=== PATIENT | female | born 1955 | race Caucasian/White ===

== ENCOUNTER → 2019-08-28 12:06 | Outpatient (BNVA) | payer BC, SELFPAY | PROVIDERS: Family Provider Family Medicine; PCP Family Medicine; Visit Provider Nurse Practitioner Women's Health | DX: Z01.89 Encounter for other specified special examinations (principal) ==

== ENCOUNTER 2020-08-01 08:43 | Outpatient (CLI) | payer BC, SELFPAY ==
--- NOTE | 2020-08-01 08:48 | MM_ITS ---
WS: [id number] Bilateral screening digital mammogram, 08/01/2020 Clinical Data: SCREENING Comparison: 07/31/2019, 06/16/2018, 12/23/2017, 06/17/2017, 05/26/2017, 04/14/2016, 04/14/2015, 03/12/2014, 03/08/2013, 01/05/2012, 12/17/2010, 12/15/2009. Findings: The breast parenchymal pattern shows fibroglandular tissue. No spiculated masses or clustered calcifi cations are seen. There are no secondary signs of carcinoma. There are lymph nodes in both axilla. MM/[place] [id number] Impression: 1. Negative bilateral mammogram unchanged. 2. Recommend annual screening mammograms. BIRADS: 1-Negative FOLLOW UP: 1 Year Follow-up The CAD clerical car checker was used.
== END 2020-08-01 08:44 | disposition home or self-care (01) ==
LOC: RADSHAW 08:45
PROVIDERS: Family Provider Family Medicine; PCP Family Medicine; Visit Provider Nurse Practitioner Women's Health
DX: Z12.31 Encounter for screening mammogram for malignant neoplasm of breast (principal)
CPT/HCPCS: 77067

== ENCOUNTER → 2021-06-19 10:23 | Outpatient (BNVA) | payer BC, SELFPAY | PROVIDERS: Family Provider Family Medicine; PCP Family Medicine; Visit Provider Surgery | DX: Z20.822 Contact with and (suspected) exposure to COVID-19 (principal); Z11.52 Encounter for screening for COVID-19 | CPT/HCPCS: 87635 ==

== ENCOUNTER 2021-06-24 06:57 | Day surgery (SDC) | payer BC, MEDICARE, SELFPAY ==
[2021-06-22 12:12] VITALS: BMI 30.2
--- NOTE | 2021-06-24 07:44 | ANES.PREANE2 ---
Pre-Anesthetic Assessment Pre-Anesthetic Assessment: Height/Weight: Height 1.52 m Weight 70.307 kg Preop Diagnosis: Screening colonoscopy Proposed Procedure: Operation Date: 06/24/21 08:15 Proposed Procedures p Colonoscopy 84156 Z12.11(Not Applicable) - Nestor Hayes MD Familial anesthetic complications: None Was Beta Isatu taken within 24 hours: N/A Was Clonidine taken within 24 hours: N/A Last intake: > 8 hrs Social: Social History: No alcohol and No tobacco Exam: Pre-Anes Outpt Exam: alert, oriented x 3, clear to auscultation bilaterally and regular rate & rhythm Airway: Cervical ROM: WNL MP: 1 Dentition: Full Pulmonary: Comments: allergies Anesthetic Plan: ASA status: 1 Anesthesia: MAC Risk of > 500 ml blood loss (7ml/kg in children): No PFSH Anesthesia PFSH: Medical History Patient denies medical problems Patient denies any past medical history of hypertension, diabetes, heart, lung, liver, kidney, thyroid, bleeding, or clotting problems. Surgical History History of tubal ligation Family History Brother Colon cancer dx age 70's Denies family history of Ovarian cancer Diabetes Heart disease Hypercholesteremia Breast cancer Hypertension Uterine cancer Thyroid disease Stroke Social History Smoking and tobacco status: never smoked Additional social history: Well balanced diet Data Anesthesia Cardiac Studies: No Data to Display
[2021-06-24 08:08] VITALS: BP 168/99; PULSE 93; RESP 18; TEMP 36.1; O2SAT 95
[2021-06-24] MEDS: sodium chloride 0.9% 1,000 ML 30 ML IV (08:24)
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
[2021-06-24 09:16] VITALS: BP 95/72; PULSE 73; RESP 18; TEMP 36.2; O2SAT 96
--- NOTE | 2021-06-24 15:37 | ANE.PACU2 ---
Inpatient post-anesthesia follow up: Airway intact: Yes Vital signs: Temperature 97.1 F Pulse Rate 73 Respiratory Rate 18 Blood Pressure 95/72 Pulse Oximetry 96 Oxygen Delivery Me thod Nasal Cannula Oxygen Flow Rate 4 Fraction of Inspir ed Oxygen Hydration adequate: Yes Nausea and vomiting: No Pain level: 2 Mental status: Baseline
== END 2021-06-24 09:45 | disposition home or self-care (01) ==
PROVIDERS: PCP Family Medicine; Visit Provider Surgery
PROC: 0DJD8ZZ Inspection of Lower Intestinal Tract, Via Natural or Artificial Opening Endoscopic (ICD-10-PCS; CPT 45378; principal; 2021-06-24 08:15)
DX: Z12.11 Encounter for screening for malignant neoplasm of colon (principal); K57.30 Diverticulosis of large intestine without perforation or abscess without bleeding; Z80.0 Family history of malignant neoplasm of digestive organs; Z86.718 Personal history of other venous thrombosis and embolism
CPT/HCPCS: 45378; 96360; J2704; J7030

== ENCOUNTER 2021-07-21 10:02 | Outpatient (CLI) | payer BC, MEDICARE, SELFPAY ==
--- NOTE | 2021-07-21 10:08 | CT_ITS ---
WS: [id number] CT CHEST ANGIOGRAPHY WITH REFORMATS HISTORY: RESPIRATORY CRACKLES/DYSPNEA/DVT TECHNIQUE: Contiguous axial images are obtained through the chest during arterial injection of intrav enous contrast. Images are reconstructed to evaluate the pulmonary arteries. MIP imaging also reviewe d. All CT scans at [facility] use at least one of these dose optimization techniques: automat ed exposure control; mA and/or kV adjustment per patient size (includes targeted exams where dose is matched to clinical indication); or iterative reconstruction. CONTRAST: Omnipaque 350; 95 mL IV. DLP: 498.92 mGy.cm COMPARISON: None available. Very good opacification of the pulmonary arteries. No filling defects or pulmonary emboli. Normal siz e pulmonary artery. Mild atherosclerotic plaque within the aorta. No aneurysm or dissection. Mild enl argement of the heart. No pericardial or pleural effusions. There are a few scattered peripheral opacifications bilaterally but greatest throughout the LEFT lung . There are also changes suggesting chronic interstitial lung disease. No mediastinal or hilar adenop athy. Upper abdomen is normal. Thoracic spondylosis. CT/CT angio chest PE protcl [id number] IMPRESSION: 1. No pulmonary embolism. 2. Bilateral mild scattered pulmonary opacifications superimposed on chronic i nterstitial lung disease. Correlate for possible Covid 19.
[2021-07-21] MEDS: iohexol 350 mg/mL 100 mL Btl IV (11:24)
== END 2021-07-21 10:03 | disposition home or self-care (01) ==
LOC: RAD 10:04
PROVIDERS: PCP Family Medicine; Visit Provider Family Medicine
DX: R09.89 Other specified symptoms and signs involving the circulatory and respiratory systems (principal); R06.00 Dyspnea, unspecified; I80.209 Phlebitis and thrombophlebitis of unspecified deep vessels of unspecified lower extremity
CPT/HCPCS: 71275

== ENCOUNTER → 2021-09-08 08:53 | Outpatient (BNVA) | payer BC, MEDICARE, SELFPAY | PROVIDERS: PCP Family Medicine; Visit Provider Nurse Practitioner Women's Health | DX: Z01.419 Encounter for gynecological examination (general) (routine) without abnormal findings (principal) | CPT/HCPCS: 87624 ==

== ENCOUNTER 2021-10-07 07:44 | Outpatient (CLI) | payer BC, MEDICARE, SELFPAY ==
--- NOTE | 2021-10-07 07:53 | MM_ITS ---
WS: [id number] BILATERAL SCREENING DIGITAL MAMMOGRAM WITH CAD HISTORY: SCREENING COMPARISON: 08/01/2020, 07/31/2019 and 06/16/2018 Bilateral CC and MLO views submitted. Computer aided detection analyzed. Breast composition: There are scattered areas of fibroglandular density. No suspicious masses, microc alcifications or architectural distortion. Benign round calcifications along the inferomedial LEFT br east. MM/[place] [id number] IMPRESSION: BI-RADS: 2-Benign FOLLOW UP: 1 Year Follow-up
== END 2021-10-07 07:45 | disposition home or self-care (01) ==
PROVIDERS: PCP Family Medicine; Visit Provider Family Medicine
DX: Z12.31 Encounter for screening mammogram for malignant neoplasm of breast (principal)
CPT/HCPCS: 77067

== ENCOUNTER 2021-11-10 10:41 | Outpatient (CLI) | payer BC, MEDICARE, SELFPAY ==
--- NOTE | 2021-11-10 11:03 | CT_ITS ---
WS: [id number] CT CHEST WITH INTRAVENOUS CONTRAST HISTORY: DYSPNEA/PNEUMONIA TECHNIQUE: Contiguous 5 mm axial imaging performed on the thorax. Coronal and sagittal reformats are submitted. All CT scans at [facility] use at least one of these dose optimization techniques: automated exposure control; mA and/or kV adjustment per patient size (includes targeted exams where dose is matched to clinical indication); or iterative reconstruction. CONTRAST: Omnipaque 300; 95 mL IV. DLP: 543.80 mGy.cm COMPARISON: 07/21/2021 Lungs and central airway: Mild pulmonary hyperinflation. There is persistent interstitial thickening and reticulation noted bilaterally. Greatest throughout the LEFT upper lobe and at the lung bases graham aterally. There are reticulations with additional focal areas of consolidation radius at the LEFT marcia g base. Very similar to the prior examination from 07/21/2021. No focal nodule. There is benign calcif ication RIGHT upper lobe. Pleura: Normal. No pleural effusion. Heart and pericardium: Mild cardiomegaly. No pericardial effusion. Mediastinum and logan: Small mediastinal and hilar lymph nodes. No increasing or new lymph nodes. Larg est lymph nodes measure approximately 10 mm on the RIGHT. Vessels: Mild atherosclerosis within the thoracic aorta. Great vessels are patent. Normal size pulmon victor hugo artery. Chest wall and lower neck: No soft tissue masses. Upper abdomen: Contracted gallbladder. No adrenal mass. Osseous structures: No destructive process. CT/CT chest w con* [id number] IMPRESSION: 1. Bilateral areas of interstitial thickening with more focal irregular consol idations at the lung bases. Very similar to the study of 07/21/2021 without impr ovement. May be residual of Covid 19. Also consider cryptogenic organizing pneu monia. 2. Mild cardiomegaly. 3. No adenopathy.
[2021-11-10 11:36] LABS: Blood Urea Nitrogen 11 mg/dL (8-23); Glomerular Filtration Rate 62.6 mL/min (90-130)
[2021-11-10] MEDS: iohexol 300 mg/mL 100 mL Btl IV (11:53)
== END 2021-11-10 10:42 | disposition home or self-care (01) ==
LOC: RAD 10:59
PROVIDERS: PCP Family Medicine; Visit Provider Family Medicine
DX: R06.02 Shortness of breath (principal); J18.9 Pneumonia, unspecified organism; R06.00 Dyspnea, unspecified; I51.7 Cardiomegaly
CPT/HCPCS: 71260; 82565; 84520

== ENCOUNTER → 2021-12-02 10:18 | Outpatient (BNVA) | payer BC, MEDICARE, SELFPAY | PROVIDERS: PCP Family Medicine; Visit Provider Internal Medicine Critical Care Medicine | DX: J84.9 Interstitial pulmonary disease, unspecified (principal) | CPT/HCPCS: 36415; 71046; 82085; 82550; 85025; 85651; 86038; 86140; 86200; 86235; 86331; 86431; 86606; 86609 ==

== ENCOUNTER 2021-12-22 05:39 | Day surgery (SDC) | payer BC, MEDICARE, SELFPAY ==
[2021-12-21 11:58] VITALS: BMI 28.7
[2021-12-22] VITALS (41 sets, daily range): BP systolic 114–176; BP diastolic 67–104; PULSE 63–97; RESP 18–36; TEMP 36.1–36.8; O2SAT 85–96
--- NOTE | 2021-12-22 | SCC_ITS ---
Procedure: Bronchoscopy with inspection of the airway, bronchoalveolar lavage, transbronchial biopsy under fluoroscopy guidance and control of bleeding. 1.1 seconds of fluoroscopic guidance, for a cumulative dose of 7.32 mGy, was provided to Dr. King by the radiology department. C-arm images of the chest were saved for the patient's permanent record. MTDD
[2021-12-22] MEDS: sodium chloride 0.9% 1,000 ML 30 ML IV (06:27)
--- NOTE | 2021-12-22 06:52 | ANES.PREANE2 ---
Pre-Anesthetic Assessment Height/Weight: Height 1.52 m Weight 66.678 kg Temp Pulse Resp BP Pulse Ox 97.7 F 63 18 173/92 93 12/22/21 06:09 12/22/21 06:09 12/22/21 06:09 12/22/21 06:09 12/22/21 06:09 Preop Diagnosis: Hypersensitivity pneumonitis Operation Date: 12/22/21 07:00 Proposed Procedures p Bronchoscopy with transbronchial bx under fluoroscopy [id number]/r91.8(Not Applicable) - Denice King MD Familial anesthetic complications: None Was Beta Isatu taken within 24 hours: N/A Was Clonidine taken within 24 hours: N/A Last intake: Intake Last Liquid Date 12/21/21 Last Liquid Time 15:00 Last Solid Date 12/21/21 Last Solid Time 15:00 Social No alcohol and No tobacco Exam alert, oriented x 3, clear to auscultation bilaterally and regular rate & rhythm Airway Submandibular: within normal limits Cervical ROM: within normal limits Mallampati: Class I Dentition: chipped Pulmonary Exertional Dyspnea and Shortness of Breath CV/HEM None reported MET = 4 None reported Hepatic None reported GI None reported Metabolic None reported Musc/skel None reported Neuropsych None reported Anesthetic Plan ASA status: 2 Anesthesia: Anesthesia Evaluation and General Other: We discussed risk and benefits of general anesthesia including PONV, sore throat (sometimes severe), corneal abrasion, positioning and peripheral nerve injuries, life threatening allergic reaction, post operative ICU admission requiring prolonged intubation, stroke, heart attack, , and rare incidences of recall. Patient consents to proceed with general anesthesia. Risk of > 500 ml blood loss (7ml/kg in children): No Medications/Allergies Home Medications Medication Instructions Recorded Confirmed Last Taken Type No Known Home Medications 12/21/21 12/22/21 Unknown History Allergies Allergy/AdvReac Type Severity Reaction Status Date / Time No Known Allergies Allergy Verified 12/22/21 06:06 [facility] Anesthesia Medical History Family history of colon cancer History of tibial fracture Patient denies medical problems neghx:htn,dm,thyroid,dvt/pe PCP: [facility] Surgical History History of ankle joint replacement History of colonoscopy (~2010) History of tubal ligation Family History Brother Colon cancer dx age 70's Denies family history of Ovarian cancer Diabetes Heart disease Hypercholesteremia Breast cancer Hypertension Uterine cancer Thyroid disease Stroke Social History Smoking and tobacco status: never smoked Additional social history: Well balanced diet Data Anesthesia Cardiac Studies: No Data to Display
--- NOTE | 2021-12-22 07:03 | W.PM.OPSUD ---
Surgery/Procedure H&P Update DATE OF PROCEDURE: December 22, 2021 DATE H&P PERFORMED: 12/02/21 CHANGES TO PREVIOUS DOCUMENTATION: There is no change to the prior documentation. PREOP DIAGNOSIS: Hypersensitivity pneumonitis PRIMARY INDICATION FOR PROCEDURE: Interstitial lung disease PLANNED PROCEDURE: Bronchoscopy with inspection of the airway, possible endobronchial biopsy, bronchoalveolar lavage, fluoroscopy guided transbronchial biopsies and control of bleeding. Operation Date: 12/22/21 07:00 Proposed Procedures p Bronchoscopy with transbronchial bx under fluoroscopy [id number]/r91.8(Not Applicable) - Denice King MD
--- NOTE | 2021-12-22 07:22 | SC_ITS ---
WS: [id number] History: Presumed interstitial lung disease. PROCEDURE: Bronchoscopy and biopsy right lower lung 12/22/2021. Single image during bronchoscopy and biopsy demonstrates the bronchoscope in the right lower lobe wit h extension of the biopsy cannula more peripherally in the right lower lobe.
[2021-12-22] MEDS: lidocaine 1% INJ 20 mL XX (07:30)
--- NOTE | 2021-12-22 08:00 | P.OP_ITS ---
Operative Report Date of procedure: December 22, 2021 Pre-op diagnosis: Preop Diagnosis Hypersensitivity pneumonitis Procedure: Name of the procedure: Bronchoscopy with inspection of the airway, bronchoalveolar lavage, transbronchial biopsy under fluoroscopy guidance and control of bleeding. Indication: Bilateral interstitial infiltrate suspected of hypersensitivity pneumonitis Anesthesia: General anesthesia. Local anesthesia: 1% lidocaine instilled on the vocal cords, 3 mL, 1% lidocaine in the airway and jones a total of 7 mL. Description of the procedure: The patient was positioned optimally. Monitored anesthesia care was initiated by the anesthesia team. The bronchoscope was advanced through the LMA. The vocal cords were anesthetized with 1% lidocaine. The bronchoscope was passed through the vocal cords and the airway was anesthetized with 1% lidocaine again. At this point, before airway inspection could begin, it was difficult to ventilate the patient and the patient was intubated. The bronchoscope was then introduced through the endotracheal tube. The lower trachea was normal. The jones was sharp. In a systematic manner bilateral airways were then examined. The bronchoscope was introduced into left mainstem bronchus. The left upper lobe, lingula and lower lobe bronchi were examined up to third subsegmental level. There was no endobronchial lesion, mucous plug or bleeding. The bronchoscope was then introduced into the right mainstem bronchus. The right upper lobe, middle lobe and lower lobe bronchi were examined up to the third subsegmental level and no abnormalities were identified. Bronchoalveolar lavage was performed from the medial segment of the right middle lobe. A total of 120 cc of normal saline was instilled into installations, total fluid return was 25 mL. The fluid was cloudy. Transbronchial biopsies under fluoroscopy guidance was then performed from the lateral segment of the right middle lobe. A total of 5 biopsies were obtained at the end of the biopsies, the fluoroscopy revealed collapsed lung margin. The procedure was aborted at this time. Chest x-ray: Postprocedure chest x-ray revealed right-sided pneumothorax. The patient was stable in the PACU. No chest pain, stable blood pressure and oxygen saturation in the 90s. The patient will be followed with serial chest x- rays.
--- NOTE | 2021-12-22 08:00 | XR_ITS ---
WS: [id number] XR chest 1V portable [id number] REASON FOR EXAM: post bronchoscopy FINDINGS: Post bronchoscopy there is 50% or greater right pneumothorax. There appears to be some shift of the mediastinal structures to the left although this may be rotatio nal. This would suggest the pneumothorax is under tension. Left lung is somewhat hypoaerated with stable interstitial changes. XR/XR chest 1V portable [id number] IMPRESSION: Right pneumothorax postbiopsy as above.
[2021-12-22 09:12] LABS: Apprearance, Bronch Wash Bloody (CLEAR); Color, Bronc Wash Slight Pink
[2021-12-22 09:13] LABS: PATH Referral Yes
[2021-12-22 10:03] LABS: Total Cells Counted Bronch 400
[2021-12-22 10:05] LABS: Bronch Source Right and Left Lobes
--- NOTE | 2021-12-22 12:06 | XR_ITS ---
WS: [id number] XR chest 1V portable [id number] REASON FOR EXAM: Pneumothorax FINDINGS: Right pneumothorax again noted. Compared to the previous examination of 8:02 AM this same day, the ri ght pneumothorax appears to be somewhat increased volume. The chest is otherwise unchanged compared to the previous study with chronic interstitial changes in the left lung and atelectasis in the right lower lung. XR/XR chest 1V portable [id number] IMPRESSION: Somewhat increased volume of the right pneumothorax. No evidence of tension pne umothorax on this examination.
--- NOTE | 2021-12-22 12:39 | PM.PN ---
Subjective Subjective: The patient was seen and examined around 12:15 PM. The patient was resting comfortably with no significant distress. Her oxygen saturation was in the mid 80s. A repeat chest x-ray revealed stable to minimally increased pneumothorax on the right side. There was no evidence of tension. The patient was hemodynamically stable. The evaluation by respiratory therapy revealed that the patient would need oxygen prior to discharge. I have discussed the plan with the patient in detail.. I am going to provide her with my personal cell phone number. If there is any worsening of her respiratory status I have asked her to reach out to me or come to the emergency department. It is not surprising that the patient is requiring oxygen as the patient has interstitial lung disease to begin with. I am going to obtain a chest x-ray tomorrow morning. Vitals/I&O/Wt Last Vital Signs Temp 97.5 F L 12/22/21 12:03 Pulse 88 12/22/21 11:50 Resp 20 H 12/22/21 12:03 BP 148/104 12/22/21 12:03 Pulse Ox 88 L 12/22/21 12:37 12/21/21 12/22/21 12/22/21 22:59 06:59 14:59 Intake Total 1400 / 1400 Output Total 0 / 0 Balance 1400 / 1400 Weight last 48 hrs Weight 147 lb Data Micro: Microbiology 12/22/21 07:37 Gram Stain - Final Lung Right Middle Lobe Attestations Medical Necessity Statement*: The patient is going to be discharged home today. Coding Level of Care Code Acute Fire Equipment Repairer Inspector for Thuan Leroy
--- NOTE | 2021-12-22 13:15 | PC.SOCIAL ---
Pt needs O2 Meggan with Outpt surgery called & said that pt had a procedure done today & needed O2 setup. She said that pt has already discharged & went over to [facility] to get her O2 & HOME is needing more paperwork on pt & Meggan said she was unsure of what all they needed so she called CM. [employer] checked & a home O2 eval had been completed. O2 orders in. Called HOME spoke with Melissa, she said that pt is there waiting on it. Faxed orders, eval, & notes to HOME. No other needs noted for [facility].
--- NOTE | 2021-12-22 13:16 | ANE.PACU2 ---
Inpatient post-anesthesia follow up: Airway intact: Yes Vital signs: Temperature 97.5 F Pulse Rate 88 Respiratory Rate 20 Blood Pressure 148/104 Pulse Oximetry [Qu alifying 92 Sp02 on Oxygen wit h Exercise] Pulse Oximetry [6 Minute 86 Exercise Test on R oom Air] Pulse Oximetry [Ro om Air at 88 Rest] Pulse Oximetry 90 Oxygen Delivery Me thod Room Air Oxygen Flow Rate 2 Fraction of Inspir ed Oxygen Hydration adequate: Yes Nausea and vomiting: No Pain level: 1 Mental status: Baseline Additional Comments: Patient discharged on home O2
[2021-12-24 09:11] LABS: Leukemia Profile (BBPL) See Report; Lymphoma Profile (BBPL) See Report
[2021-12-27 12:27] LABS: P. Jirovecii DNA QL PCR NOT DETECTED; P. Jirovecii DNA QL PCR Source BRONCH LAVAGE
[2021-12-30 17:47] LABS: Aspergillus AG,EIA NOT DETECTED; Aspergillus AG,EIA, Index <0.50
[2022-01-05 13:59] LABS: Miscellaneous Test SEE COMMENTS
== END 2021-12-22 12:54 | disposition home or self-care (01) ==
PROVIDERS: PCP Family Medicine; Visit Provider Internal Medicine Critical Care Medicine
PROC: 0BJ08ZZ Inspection of Tracheobronchial Tree, Via Natural or Artificial Opening Endoscopic (ICD-10-PCS; CPT 31622; principal; 2021-12-22 07:00)
DX: J67.9 Hypersensitivity pneumonitis due to unspecified organic dust (principal); Z80.0 Family history of malignant neoplasm of digestive organs; J84.9 Interstitial pulmonary disease, unspecified; J93.9 Pneumothorax, unspecified; R91.8 Other nonspecific abnormal finding of lung field
CPT/HCPCS: 31628; 31632; 71045; 76000; 80503; 87015; 87070; 87102; 87116; 87205; 87206; 87281; 87305; 87798; 87801; 88184; 88185; 88305; 89050; 94760; J0330; J1100; J2405; J2704; J3010; J7030

== ENCOUNTER 2021-12-23 10:27 | Outpatient (CLI) | payer BC, MEDICARE, SELFPAY ==
--- NOTE | 2021-12-23 10:42 | XR_ITS ---
WS: [email or web address] XR chest 2V* [id number] REASON FOR EXAM: Pneumothorax FINDINGS: No interval change in the volume of the right pneumothorax compared to the examination of 12/22/2021 a t 12:14 PM. Continued atelectasis in the right lower lung. The left chest is unchanged compared to the examination of 12/22/2021 at 12:14 PM. No new findings. XR/XR chest 2V* [id number] IMPRESSION: Stable abnormal chest.
== END 2021-12-23 10:28 | disposition home or self-care (01) ==
LOC: RAD 10:30
PROVIDERS: PCP Family Medicine; Visit Provider Internal Medicine Critical Care Medicine
DX: J93.9 Pneumothorax, unspecified (principal)
CPT/HCPCS: 71046

== ENCOUNTER 2021-12-28 09:03 | Outpatient (CLI) | payer BC, MEDICARE, SELFPAY ==
--- NOTE | 2021-12-28 09:12 | XRR_ITS ---
PROCEDURE INFORMATION: Exam: XR Chest Exam date and time: 12/28/2021 9:18 AM Age: 66 years old Clinical indication: Condition or disease. Follow-up pneumothorax. TECHNIQUE: Imaging protocol: XR of the chest. Views: 2 views. COMPARISON: CR XR chest 2V* [id number] 12/23/2021 11:01 AM FINDINGS: Lungs: There is patchy opacity in the mid and lower left chest suspicious for pneumonia. There is a small nodular density in the partially collapsed right lung. Pleural spaces: There is a moderate to large right pneumothorax with mediastinal shift to the left suggesting tension component. This may be slightly improved. No pneumothorax. Heart/Mediastinum: The cardiac silhouette is unchanged. No gross evidence of pneumomediastinum. Bones/joints: No gross fracture. XR/XR chest 2V* [id number] IMPRESSION: 1. Moderate to large right pneumothorax with mediastinal shift to the left suggesting tension component. This may be slightly improved. 2. Patchy opacity in the mid and lower left chest suspicious for pneumonia. 3. Small nodular density in the partially collapsed right lung. Recommend nonemergent CT chest to better characterize.
== END 2021-12-28 09:04 | disposition home or self-care (01) ==
LOC: RAD 09:06
PROVIDERS: PCP Family Medicine; Visit Provider Internal Medicine Critical Care Medicine
DX: J93.9 Pneumothorax, unspecified (principal); J84.9 Interstitial pulmonary disease, unspecified
CPT/HCPCS: 71046

== ENCOUNTER 2022-01-04 08:23 | Outpatient (CLI) | payer BC, MEDICARE, SELFPAY ==
--- NOTE | 2022-01-04 08:32 | XR_ITS ---
WS: [email or web address] Exam: XR chest 2V* [id number] Date/Time of Exam: 01/04/2022 8:32 AM Reason For Exam: Pneumothorax Comparison 12/28/2021. Improving right-sided pneumothorax noted. Pneumothorax is estimated at 15%. No midline shift or tension noted. Interstitial fibrosis seen in the right lower lobe and mid and lower left lung. Left lung remains fully expanded. Normal cardiomediastinal silhouette. No pleural effusion . Bony structures are intact. The is thoracolumbar scoliosis. XR/XR chest 2V* [id number] IMPRESSION: 1. Improving pneumothorax of the right lung estimated at 15%. 2. Signs of COPD and interstitial fibrosis as noted above. 3. No acute infiltrate or pleural effusion.
== END 2022-01-04 08:24 | disposition home or self-care (01) ==
LOC: RAD 08:27
PROVIDERS: PCP Family Medicine; Visit Provider Internal Medicine Critical Care Medicine
DX: J93.9 Pneumothorax, unspecified (principal)
CPT/HCPCS: 71046

== ENCOUNTER → 2022-01-12 14:44 | Outpatient (BNVA) | payer BC, MEDICARE, SELFPAY | PROVIDERS: PCP Family Medicine; Visit Provider Internal Medicine Critical Care Medicine | DX: J84.9 Interstitial pulmonary disease, unspecified (principal); J67.9 Hypersensitivity pneumonitis due to unspecified organic dust; J93.9 Pneumothorax, unspecified | CPT/HCPCS: 71046 ==

== ENCOUNTER 2022-02-23 06:44 | Outpatient (CLI) | payer BC, MEDICARE, SELFPAY ==
--- NOTE | 2022-02-23 11:43 | PFTS_ITS ---
Date of Study:02/23/22 Date of Dictation: 02/27/2022 MECHANICS: Postbronchodilator forced vital capacity (FVC) is normal. Postbronchodilator forced expiratory volume in one second (FEV1) is normal. FEV1/FVC is normal. There is no significant postbronchodilator response FLOW VOLUME LOOP: . LUNG VOLUMES: Total lung capacity (TLC) is mildly reduced. Residual volume (RV) is mildly reduced. DIFFUSING CAPACITY FOR CARBON MONOXIDE: Mildly reduced . INTERPRETATION: The spirometry is normal. There is no postbronchodilator response. Lung volumes are mildly reduced suggestive of some restriction. There is mild gas transfer defect. Clinical correlation recommended. MTDD
== END 2022-02-23 06:45 | disposition home or self-care (01) ==
LOC: RT 06:46
PROVIDERS: PCP Family Medicine; Visit Provider Internal Medicine Critical Care Medicine
DX: J84.9 Interstitial pulmonary disease, unspecified (principal)
CPT/HCPCS: 94060; 94726; 94729; J7614

== ENCOUNTER → 2022-02-25 09:32 | Outpatient (BNVA) | payer BC, MEDICARE, SELFPAY | PROVIDERS: PCP Family Medicine; Visit Provider Internal Medicine Critical Care Medicine | DX: J67.9 Hypersensitivity pneumonitis due to unspecified organic dust (principal); J93.9 Pneumothorax, unspecified; J84.10 Pulmonary fibrosis, unspecified | CPT/HCPCS: 71046 ==

== ENCOUNTER → 2022-04-12 10:14 | Outpatient (BNVA) | payer MEDICARE, SELFPAY | PROVIDERS: PCP Family Medicine; Visit Provider Internal Medicine Critical Care Medicine | DX: J67.9 Hypersensitivity pneumonitis due to unspecified organic dust (principal); J93.9 Pneumothorax, unspecified | CPT/HCPCS: 99213 ==

== ENCOUNTER 2022-04-15 13:06 | Outpatient (CLI) | payer MEDICARE, SELFPAY ==
--- NOTE | 2022-04-15 16:00 | CT_ITS ---
WS: [id number] CT CHEST TECHNIQUE: Noncontrast CT of the chest with coronal and sagittal reformatted images. CLINICAL INFORMATION: Shortness of breath COMPARISON: CT November 10, 2021 DLP: 572.[address] scans at [facility] use at least one of these dose optimization techniques: automated e xposure control; mA and/or kV adjustment per patient size (includes targeted exams where dose is matc hed to clinical indication); or iterative reconstruction. FINDINGS: Interstitial thickening with subpleural reticular opacities more prominent in both lower lo bes, RIGHT middle lobe, lingula, and perihilar regions. This is improved since November 10, 2021 with le ss airspace consolidation. Findings may be due to residual sequelae from COVID 19 pneumonia. No progr essed infiltrates. Normal caliber thoracic aorta. Mild aortic calcification. No mediastinal or hilar lymphadenopathy. Ca lcified RIGHT hilar nodes. No axillary lymphadenopathy. Adrenal glands are normal. Normal GE junction. Hypertrophic changes thoracic spine. CT/CT chest wo con [id number] IMPRESSION: 1. Previously described reticular opacities with interstitial thickening more prominent in the lung bases and the perihilar regions are persistent but improv ed compared to November 10, 2021. Improved lung aeration today with less consolida tion. 2. No mediastinal or hilar lymphadenopathy. 3. Normal caliber thoracic aorta. Aortic calcification. 4. No other significant changes compared to previous.
== END 2022-04-15 13:07 | disposition home or self-care (01) ==
LOC: RAD 13:09
PROVIDERS: PCP Family Medicine; Visit Provider Internal Medicine Critical Care Medicine
DX: J67.9 Hypersensitivity pneumonitis due to unspecified organic dust (principal)
CPT/HCPCS: 71250

== ENCOUNTER → 2022-07-07 13:22 | Outpatient (BNVA) | payer MEDICARE, SELFPAY | PROVIDERS: PCP Family Medicine; Visit Provider Family Medicine | DX: Z00.00 Encounter for general adult medical examination without abnormal findings (principal); Z13.6 Encounter for screening for cardiovascular disorders | CPT/HCPCS: 80053; 80061 ==

== ENCOUNTER 2022-10-11 07:25 | Outpatient (CLI) | payer MEDICARE, SELFPAY ==
--- NOTE | 2022-10-11 08:00 | MM_ITS ---
WS: [id number] Bilateral screening 3D tomosynthesis digital mammogram, 10/11/2022 Clinical Data: SCREEN Comparison: 10/07/2021, 08/01/2020, 07/31/2019, 06/16/2018, 12/23/2017, 06/17/2017, 05/26/2017, 04/14/2016 , 04/14/2015, 03/12/2014, 03/08/2013, 01/05/2012, 12/17/2010, 12/15/2009. Findings: The breast parenchymal pattern shows fibroglandular tissue. No spiculated masses or clustered calcifi cations are seen. There are no secondary signs of carcinoma. There are unchanged benign calcification s in the inferior medial left breast. There are small lymph nodes in both axilla. MM/[id number] Impression: 1. Negative bilateral mammogram unchanged. 2. Recommend annual screening mammograms. BIRADS: 1-Negative FOLLOW UP: 1 Year Follow-up The CAD specifications checker was used.
== END 2022-10-11 07:26 | disposition home or self-care (01) ==
PROVIDERS: PCP Family Medicine; Visit Provider Family Medicine
DX: Z12.31 Encounter for screening mammogram for malignant neoplasm of breast (principal)
CPT/HCPCS: 77063; 77067

== ENCOUNTER → 2022-11-04 12:00 | Outpatient (BNVA) | payer MEDICARE, SELFPAY | PROVIDERS: PCP Family Medicine; Visit Provider Nurse Practitioner Women's Health | DX: Z01.419 Encounter for gynecological examination (general) (routine) without abnormal findings (principal) | CPT/HCPCS: 87624 ==

== ENCOUNTER → 2022-12-31 10:29 | Outpatient (BNVA) | payer MEDICARE, SELFPAY | PROVIDERS: PCP Family Medicine; Visit Provider Internal Medicine Pulmonary Disease | DX: J67.9 Hypersensitivity pneumonitis due to unspecified organic dust (principal); J93.9 Pneumothorax, unspecified | CPT/HCPCS: 99214 ==

== ENCOUNTER → 2023-07-13 11:34 | Outpatient (BNVA) | payer MEDICARE, SELFPAY | PROVIDERS: PCP Family Medicine; Visit Provider Family Medicine | DX: Z13.1 Encounter for screening for diabetes mellitus (principal); Z13.6 Encounter for screening for cardiovascular disorders | CPT/HCPCS: 80053; 80061 ==

== ENCOUNTER 2023-10-12 07:51 | Outpatient (CLI) | payer MEDICARE, SELFPAY ==
--- NOTE | 2023-10-12 08:04 | MM_ITS ---
WS: [id number] VIEWS: MLO and CC views both breasts. 3D digital tomosynthesis is also included in this exam. Comparison made with prior exam of 12/23/2017, 06/16/2018, 07/31/2019, 10/07/2021, 08/01/2020, 10/11/2022 .. Findings: There was no sign of mass, architectural distortion or suspicious calcification in either breast. The re are scattered areas of fibroglandular density Impression: MM/[place] [id number] BI-RADS: 2-Benign FOLLOW-UP: 1 Year Follow-up This mammogram was also analyzed by the Computer Aided Detection System R2 Imag e Ore Sampler.
== END 2023-10-12 07:52 | disposition home or self-care (01) ==
LOC: RAD 07:51
PROVIDERS: PCP Family Medicine; Visit Provider Family Medicine
DX: Z12.31 Encounter for screening mammogram for malignant neoplasm of breast (principal)
CPT/HCPCS: 77063; 77067

== ENCOUNTER → 2024-07-10 08:44 | Outpatient (BNVA) | payer MEDICARE, SELFPAY | PROVIDERS: PCP Family Medicine; Visit Provider Family Medicine | DX: E78.5 Hyperlipidemia, unspecified (principal); Z00.00 Encounter for general adult medical examination without abnormal findings | CPT/HCPCS: 80053; 80061 ==

== ENCOUNTER 2024-10-15 08:24 | Outpatient (CLI) | payer MEDICARE, SELFPAY ==
--- NOTE | 2024-10-15 08:26 | MM_ITS ---
WS: [id number] BILATERAL SCREENING DIGITAL TOMOSYNTHESIS MAMMOGRAM WITH CAD HISTORY: SCREENING COMPARISON: 10/12/2023, 10/11/2022, 07/31/2019 Bilateral CC and MLO views with tomosynthesis and synthetic mammography submitted. Computer aided detection analyzed. Breast composition: There are scattered areas of fibroglandular density. No suspicious masses, microcalcifications or architectural distortion. Benign calcifications in each breast. MM/MM scr tomosynthesis [id number] IMPRESSION: BI-RADS: 2 - Benign. FOLLOW UP: 1 Year Follow-up
== END 2024-10-15 08:25 | disposition home or self-care (01) ==
PROVIDERS: PCP Family Medicine; Visit Provider Family Medicine
DX: Z12.31 Encounter for screening mammogram for malignant neoplasm of breast (principal); R92.323 Mammographic fibroglandular density, bilateral breasts; R92.1 Mammographic calcification found on diagnostic imaging of breast
CPT/HCPCS: 77063; 77067

== ENCOUNTER → 2025-07-25 10:05 | Outpatient (BNVA) | payer MEDICARE, SELFPAY | PROVIDERS: PCP Family Medicine; Visit Provider Family Medicine | DX: Z00.00 Encounter for general adult medical examination without abnormal findings (principal); E78.5 Hyperlipidemia, unspecified | CPT/HCPCS: 80053; 80061; 85025 ==